=== PATIENT | female | born 1945 | race Caucasian/White ===

== ENCOUNTER 2021-08-26 14:05 | Inpatient (IN) | payer MEDICARE, OTHER ==
[~2021-08-26] VITALS: Ht 167.6 cm; Wt 99.4 kg
[2021-08-26] VITALS (360 sets, daily range): BP systolic 155–163; BP diastolic 61–66; PULSE 85–89; TEMP 97.6–98; O2SAT 76–100
[~2021-08-26 14:05] MED LIST: AMITRIPTYLINE H10 M1 PO; ASPIR-LOW81 MG PO; CALTRATE-600 W600 MG PO; COLACE 100100 MG/CAP PO; FLEXERIL10 MG PO; FLOMAX 0.40.4 MG/CAP PO; LANTUS SOLOS100 U/ML SQ; LANTUS100 U/ML SQ; LOVAZA1 GM PO; NEXIUM40 MG PO; NORCO 325 MG-51 TAB PO; NORCO 325 MG-7.1 TAB PO; NOVOLOG 100U100 U/ML SQ; PHENERGAN 25 TA25 MG PO; PRENATAL VITAMI1 TA5 PO; PRINIVIL20 MG PO; PYRIDIUM 100MG100 MG PO; ROXICODONE 55 MG/TAB PO; SYNTHROID0.075 MG/T PO; SYNTHROID0.1 MG/TAB PO; ULTRAM 50MG TAB50 MG PO; VITAMIN D PO; VYTORIN PO; ZYRTEC5 MG PO
[2021-08-26 14:26] LABS: HEMATOCRIT 42.3 % (37.0-47.0); HEMOGLOBIN 12.7 g/dl (12.5-16.0); MEAN CELL VOLUME 77 fl (80.0-100.0); MEAN CORPUSCULAR HEMOGLOBIN 23 pg (27-31); MEAN CORPUSCULAR HGB CONC 30 g/dl (33.0-37.0); MEAN PLATELET VOLUME 9.7 fl (7.4-10.4); PLATELET COUNT 708 K/mm3 (130-400); RED BLOOD COUNT 5.47 M/mm3 (4.10-5.30); REDCELL DISTRIBUTION WIDTH-CV 21.3 % (11.5-14.5)
[2021-08-26 14:46] LABS: ALBUMIN 2.4 gm/dL (3.4-4.8); ALKALINE PHOSPHATASE 140 U/L (40-150); ANION GAP 21 mmol/L (7-16); AST,SGOT 8 U/L (5-34); BILIRUBIN,TOTAL 0.3 mg/dL (0.2-1.2); BLOOD UREA NITROGEN 11 mg/dL (10-20); CHLORIDE 105 mmol/L (98-107); CREATININE, serum 1.19 mg/dL (0.57-1.11); GLUCOSE 365 mg/dL (70-99); POTASSIUM 4.2 mmol/L (3.5-4.5); SODIUM 134 mmol/L (136-145); TOTAL PROTEIN 7.5 gm/dL (6.2-8.1)
[2021-08-26 14:47] LABS: ALANINE AMINOTRANSFERASE < 6 U/L (0-55)
[2021-08-26 14:48] LABS: CARBON DIOXIDE 8 mmol/L (23-31)
[2021-08-26 14:58] LABS: COLLECTION METHOD CATHETER
[2021-08-26 15:08] LABS: MUCOUS Present (NOT PRESENT); PH 5 (5-8); SQUAMOUS EPITHELIAL 0-2 /hpf (0-10); URINE APPEARANCE Clear (CLEAR/HAZY); URINE BACTERIA None Seen /hpf (NONE SEEN); URINE BILIRUBIN Negative (NEGATIVE); URINE BLOOD 2+ (NEGATIVE); URINE COLOR Yellow (YELLOW); URINE GLUCOSE 3+ (NEGATIVE); URINE KETONE 2+ (NEGATIVE); URINE LEUKOCYTE ESTERASE Negative (NEGATIVE); URINE NITRATE Negative (NEGATIVE); URINE PROTEIN(semi-quant) 2+ (NEGATIVE); URINE UROBILINOGEN Negative (NEGATIVE)
[2021-08-26 15:10] LABS: HYPOCHROMIA 3+; LYMPHOCYTE 9 % (20.0-51.0); MICROCYTOSIS 1+; NEUTROPHILS 80 % (42.0-75.2)
[2021-08-26 15:11] LABS: ANISOCYTOSIS 2+; PLATELET ESTIMATE INCREASED (NORMAL)
[2021-08-26] MEDS ORDERED: ATIVAN 1MG T1 MG/TAB PO (18:09)
[2021-08-26] MEDS ORDERED: OSCAL 500 TAB500 MG PO (18:10)
[2021-08-26] MEDS ORDERED: LIPITOR 10MG10 MG PO (18:10)
[2021-08-26] MEDS ORDERED: PLAVIX 75MG TAB75 MG PO (18:11)
[2021-08-26] MEDS ORDERED: DOXYCYCLINE 10100 MG PO (18:11)
[2021-08-26] MEDS ORDERED: FOLIC ACID 11 MG/TA1 PO (18:12)
[2021-08-26] MEDS ORDERED: DIFLUCAN150 MG PO (18:12)
[2021-08-26] MEDS ORDERED: LAMICTAL 100MG100 MG PO (18:13)
[2021-08-26] MEDS ORDERED: LEXAPRO20 MG PO (18:14)
[2021-08-26] MEDS ORDERED: MYRBETR50MG PO (18:15)
[2021-08-26] MEDS ORDERED: COZAAR 50MG50 MG/TAB PO (18:15)
[2021-08-26] MEDS ORDERED: NITROSTAT0.4 MG/TAB SL (18:15)
[2021-08-26] MEDS ORDERED: NOVOLOG FLEX100 U/ML SQ (18:16)
[2021-08-26] MEDS ORDERED: PRILOSEC 20MG20 MG PO (18:16)
[2021-08-26] MEDS ORDERED: PROAIR HFA0.09 MG/AC IH (18:17)
[2021-08-26] MEDS ORDERED: MASON NATURAL2000 IU PO (18:18)
[2021-08-26] MEDS ORDERED: VITAMIN B12 781 TAB PO (18:18)
[2021-08-26] MEDS ORDERED: ZYRTEC5 MG PO (18:19)
[2021-08-26] MEDS ORDERED: WELLBUTRIN SR150 M1 PO (18:19)
[2021-08-26] MEDS ORDERED: ZINC16.7 MG PO (18:19)
[2021-08-26 18:37] LABS: CALCIUM 8.6 mg/dL (8.4-10.2); CREATININE, serum 1.19 mg/dL (0.57-1.11); POTASSIUM 5.1 mmol/L (3.5-4.5)
--- NOTE | 2021-08-26 19:15 | NUR ---
DURING BEDSIDE SHIFT REPORT, THIS RN AND OFF GOING RN ASSESSED PT'S WOUNDS TO SACRUM/COCCYX AREA. PICTURES TAKEN OF WOUND TO R BUTTOCKS AND TO L GROIN TO PLACE IN PT'S CHART, WITH PERMISSION FROM PT. ROSALIE HEREDIA SIZE OPENING ON RIGHT BUTTOCKS DRAINING CUMMINGS/BUDRICK PURULENT DRAINAGE CONTINUOUSLY. ABD PAD PLACED IN FOLD OF BUTTOCKS, WILL CHANGE NEEDED. REDNESS THROUGHOUT COCCYX, PERINEUM, AND GROIN. PER PT AND FAMILY, L GROIN SITE WAS OLD CYST THAT RUPTURED. APPEARS LIKE MOIST SCABBED AREA, NO DRAINAGE NOTED. INTERDRY PLACED UNDER PANNIS AND IN GROIN AFTER CLEANSING AREA. WILL CONTINUE TO MONITOR.
[2021-08-26 22:48] LABS: CALCIUM 8.3 mg/dL (8.4-10.2); CREATININE, serum 1.07 mg/dL (0.57-1.11); POTASSIUM 3.7 mmol/L (3.5-4.5)
[2021-08-27] VITALS (1148 sets, daily range): BP systolic 132–163; BP diastolic 55–74; PULSE 70–87; TEMP 97.8–98.5; O2SAT 90–100
[2021-08-27 01:24] LABS: CALCIUM 8.6 mg/dL (8.4-10.2); CREATININE, serum 0.99 mg/dL (0.57-1.11); POTASSIUM 3.8 mmol/L (3.5-4.5)
[2021-08-27 05:20] LABS: HEMATOCRIT 37.6 % (37.0-47.0); HEMOGLOBIN 11.4 g/dl (12.5-16.0); MEAN CELL VOLUME 76 fl (80.0-100.0); MEAN CORPUSCULAR HEMOGLOBIN 23 pg (27-31); MEAN CORPUSCULAR HGB CONC 30 g/dl (33.0-37.0); MEAN PLATELET VOLUME 9.7 fl (7.4-10.4); PLATELET COUNT 625 K/mm3 (130-400); RED BLOOD COUNT 4.92 M/mm3 (4.10-5.30); REDCELL DISTRIBUTION WIDTH-CV 21.3 % (11.5-14.5)
[2021-08-27 06:08] LABS: ALKALINE PHOSPHATASE 111 U/L (40-150); ANION GAP 12 mmol/L (7-16); AST,SGOT 6 U/L (5-34); BILIRUBIN,TOTAL 0.3 mg/dL (0.2-1.2); BLOOD UREA NITROGEN 9 mg/dL (10-20); CALCIUM 8.5 mg/dL (8.4-10.2); CHLORIDE 115 mmol/L (98-107); GLUCOSE 174 mg/dL (70-99); MAGNESIUM 2.1 mg/dL (1.6-2.6); POTASSIUM 3.9 mmol/L (3.5-4.5); SODIUM 139 mmol/L (136-145); TOTAL PROTEIN 6.5 gm/dL (6.2-8.1)
[2021-08-27 06:31] LABS: ALANINE AMINOTRANSFERASE < 6 U/L (0-55)
[2021-08-27 06:32] LABS: CARBON DIOXIDE 12 mmol/L (23-31)
[2021-08-27 06:42] LABS: BAND 13 % (0-10); EOSINOPHIL 2 % (0-4); LYMPHOCYTE 9 % (20.0-51.0); NEUTROPHILS 66 % (42.0-75.2); PLATELET ESTIMATE INCREASED (NORMAL)
--- NOTE | 2021-08-27 07:00 | NUR ---
BEDSIDE REPORT RECEIVED FROM BELA JOHNSON. PT APPEARS TO BE SLEEPING AT THIS TIME; NO S/S DISCOMFORT. 20G PIV TO BILAT AC. NS W/ 20K INFUSING AT 250 ML/HR. FC TO DEPENDENT DRAINAGE. DRESSING TO PERIRECTAL WOUND CDI.
[2021-08-27 07:24] LABS: CREATININE, serum 0.94 mg/dL (0.57-1.11)
--- NOTE | 2021-08-27 10:10 | NUR ---
Building Contractor met with patient and patient's sister, Candi (ph#[phone]) to discuss discharge planning. Patient currently lives alone in [place] but advised she plans to move in with her sister Candi soon. Patient sees Dr. Givens for primary care and obtains medications from [facility]. Candi reported that she picks up patient's medications for her. Patient uses a cane for ambulation and advsied she is normally independent with ADLS. Patient reports her daughter, Josiane (ph#[phone]) is her DPOA-HC. Patient stated her daughter Josiane is the youngest of three. Patient states she is interested in Home Health services. PT/OT ordered for patient and SW will follow for recommendations. SW contacted Armida at Dr. Givens's office and requested a copy of DPOA-HC be faxed. Discharge Plan: Pending PT/OT recs
--- NOTE | 2021-08-27 13:57 | NUR ---
PT'S WOUND CULTURE POSITIVE FOR GROUP B STREP AND ECOLI. SPOKE WITH PHARMACIST; PT ADEQUATELY COVERED WITH CEFEPIME AND VANCOMYCIN.
--- NOTE | 2021-08-27 20:00 | NUR ---
PT SITTING UP IN BED EATING DINNER TRAY. AAOX3, SLIGHTLY DROWSY AT TIMES BUT EATING WITHOUT DIFFICULITY. PT STATES NO QUESTIONS OR REQUESTS. HELPED TO REPOSITION FOR COMFORT AFTER EATING. WOULD TO BUTTOCKS CONTINUES TO HAVE PURULENT DRAINAGE, TENDER TO TOUCH. WILL REPOSITION PT THROUGH NIGHT FOR PRESSURE RELIEF AND COMFORT. VSS, WILL CONTINUE TO MONITOR.
[2021-08-28] VITALS (30 sets, daily range): BP systolic 134–152; BP diastolic 58–71; PULSE 63–86; TEMP 98.1–98.8; O2SAT 96–100
[2021-08-28 05:20] LABS: BASO % 0.3 % (0.0-2.0); EOS # 0.1 K/mm3 (0.0-0.7); EOS % 0.6 % (0.0-4.0); GRAN % 72.8 % (42.2-75.2); LYMPH # 1.3 K/mm3 (1.2-3.4); LYMPH % 13.7 % (20.0-51.0); MEAN CELL VOLUME 76 fl (80.0-100.0); MEAN CORPUSCULAR HGB CONC 31 g/dl (33.0-37.0); MEAN PLATELET VOLUME 9.6 fl (7.4-10.4); MONO # 1.1 K/mm3 (0.1-0.6); MONO % 11.7 % (1.7-9.3); RED BLOOD COUNT 3.97 M/mm3 (4.10-5.30)
[2021-08-28 05:23] LABS: HEMATOCRIT 30.1 % (37.0-47.0); MEAN CORPUSCULAR HEMOGLOBIN 23 pg (27-31)
[2021-08-28 05:26] LABS: HEMOGLOBIN 9.2 g/dl (12.5-16.0); PLATELET COUNT 440 K/mm3 (130-400)
[2021-08-28 05:53] LABS: ALBUMIN 1.5 gm/dL (3.4-4.8); ALKALINE PHOSPHATASE 94 U/L (40-150); ANION GAP 8 mmol/L (7-16); AST,SGOT 8 U/L (5-34); BLOOD UREA NITROGEN 9 mg/dL (10-20); CALCIUM 7.3 mg/dL (8.4-10.2); CARBON DIOXIDE 16 mmol/L (23-31); CHLORIDE 113 mmol/L (98-107); CREATININE, serum 0.63 mg/dL (0.57-1.11); GLUCOSE 159 mg/dL (70-99); MAGNESIUM 1.5 mg/dL (1.6-2.6); PHOSPHOROUS 0.8 mg/dL (2.3-4.7); SODIUM 137 mmol/L (136-145); TOTAL PROTEIN 4.9 gm/dL (6.2-8.1)
[2021-08-28 06:01] LABS: ALANINE AMINOTRANSFERASE < 6 U/L (0-55); POTASSIUM 2.7 mmol/L (3.5-4.5)
[2021-08-28 06:56] LABS: BILIRUBIN,TOTAL 0.3 mg/dL (0.2-1.2)
--- NOTE | 2021-08-28 08:14 | NUR ---
(Late Entry) Shortage Worker placed patient's DPOA-HC in her chart. DPOA-HC designates her sister and daughter.
--- NOTE | 2021-08-28 08:41 | NUR ---
PT TRANSFERED TO ROOM 316 VIA BED. REPORT CALLED TO BELA VYAS.
--- NOTE | 2021-08-28 09:24 | NUR ---
RECEIVED BEDSIDE REPORT FROM BELA JOHNSON. UPON ASSESSMENT PT IS RESTING IN BED, ALERT AND ORIENTED. AQUINO CATHETER IN PLACE. ANTIBIOTICS, FLUIDS, MAG INFUSING TO PICC LINE TO R UPPER ARM, DRESSING CDI. DRESSING TO COCCYX WOUND CHANGED, MODERATE AMOUNT OF PURULENT DRAINAGE NOTED TO OLD DRESSING.
--- NOTE | 2021-08-28 11:40 | NUR ---
Nurse Practitioner Per Diem met with patient to follow up on discharge plan and patient's daughter, Josiane is at bedside with patient's other daughter, Maricruz (ph#[phone]) is on [employer]. Maricruz is an RN that lives in [place]. GLORIA reviewed PT/OT recommendation for SNF and both patient and daughters are agreeable. Maricruz reported they have been concerned with patient's ability to care for herself at home and willingness to take her prescribed medications. Maricruz advised that patient has stopped taking some of her medications and instead using essential oils her sister has recommended. Patient would like referrals sent to [facility] with [facility] being her first preference. GLORIA faxed referrals. Discharge Plan: SNF, pending referrals
--- NOTE | 2021-08-28 19:15 | NUR ---
Patient transferd from ICU, settled in. No significant events. Some family concerns. Patient stated to this nurse that her sister Reba Gibbons is her PRIMARY DPOA, while her daughter Josiane Pool is only to be deferred to if Reba is incapacitated. It is not to be viewed as a joint DPOA. Additionally, she wishes that any information given to Josiane be given to her (the patient first). Patient feels as if she is not being taken for her word and beliefs currently and would like to have social work and staff speak directly to her and her sister, over her daughters. This nurse will address these concerns with social work tomorrow. Additionally, home meds were ordered, and nurse addressed concerns with pharmacy about patient having been off meds and taking "essential oils" per notes from social work from meeting with patient, and daughters. Patient expressed that she vocalized that she has been taking her meds and that her daughters are not around and not listening to her.
[2021-08-28 22:37] LABS: CALCIUM 8.1 mg/dL (8.4-10.2); CREATININE, serum 0.62 mg/dL (0.57-1.11); MAGNESIUM 1.8 mg/dL (1.6-2.6); PHOSPHOROUS 1.8 mg/dL (2.3-4.7); POTASSIUM 3.2 mmol/L (3.5-4.5)
[2021-08-29 04:21] VITALS: BP 152/64; PULSE 80; TEMP 98.2
--- NOTE | 2021-08-29 06:00 | NUR ---
ASSESSMENT COMPLETE FOR THIS SHIFT. PT HAD SOME PAIN TO HER BUTTOCK. PT GIVEN TRAMADOL A COUPLE OF TIMES THIS SHIFT. PT FELT THE TRAMADOL WAS EFFECTIVE. CALL LIGHT WITHIN REACH.
[2021-08-29 07:05] LABS: BASO % 0.4 % (0.0-2.0); EOS # 0.1 K/mm3 (0.0-0.7); EOS % 0.9 % (0.0-4.0); GRAN # 7.1 K/mm3 (1.4-6.5); GRAN % 66.3 % (42.2-75.2); HEMOGLOBIN 10.8 g/dl (12.5-16.0); LYMPH # 2.1 K/mm3 (1.2-3.4); LYMPH % 19.4 % (20.0-51.0); MEAN CELL VOLUME 74 fl (80.0-100.0); MEAN CORPUSCULAR HEMOGLOBIN 23 pg (27-31); MEAN CORPUSCULAR HGB CONC 32 g/dl (33.0-37.0); MEAN PLATELET VOLUME 10.3 fl (7.4-10.4); MONO # 1.3 K/mm3 (0.1-0.6); MONO % 11.6 % (1.7-9.3); PLATELET COUNT 468 K/mm3 (130-400); RED BLOOD COUNT 4.62 M/mm3 (4.10-5.30); REDCELL DISTRIBUTION WIDTH-CV 21.6 % (11.5-14.5)
[2021-08-29 07:11] LABS: HEMATOCRIT 34.1 % (37.0-47.0)
[2021-08-29 07:22] VITALS: BP 136/75; PULSE 107; TEMP 98.7
[2021-08-29 07:34] LABS: ALBUMIN 1.7 gm/dL (3.4-4.8); ALKALINE PHOSPHATASE 126 U/L (40-150); ANION GAP 10 mmol/L (7-16); AST,SGOT 9 U/L (5-34); BILIRUBIN,TOTAL 0.3 mg/dL (0.2-1.2); BLOOD UREA NITROGEN 8 mg/dL (10-20); CALCIUM 7.9 mg/dL (8.4-10.2); CARBON DIOXIDE 22 mmol/L (23-31); CHLORIDE 107 mmol/L (98-107); CREATININE, serum 0.55 mg/dL (0.57-1.11); GLUCOSE 76 mg/dL (70-99); MAGNESIUM 1.8 mg/dL (1.6-2.6); PHOSPHOROUS 2.3 mg/dL (2.3-4.7); SODIUM 139 mmol/L (136-145); TOTAL PROTEIN 5.4 gm/dL (6.2-8.1)
[2021-08-29 07:43] LABS: ALANINE AMINOTRANSFERASE < 6 U/L (0-55)
[2021-08-29 07:45] LABS: POTASSIUM 2.9 mmol/L (3.5-4.5)
--- NOTE | 2021-08-29 11:10 | NUR ---
Initial visit; Patient doing much better after a few days of confusion and not doing well. Honey Processor happily visited with Polly and her friend and will keep her in Honey [employer]or's prayers for continued healing and all of God's blessings.
--- NOTE | 2021-08-29 11:36 | NUR ---
PATIENT PAIN AT MANAGEABLE LEVEL, REPORTS 3-4(10). PATIENT POTASSIUM BEING REPLACED THIS MORNING. NO COMPLAINTS OF SOB. SOME FINE CRACKLES IN RLL NOTED AND EDEMA IN LOWER EXTREMITIES. pATIENT ON TELE NOW, HR IN THE 120'S. KATLYN WILKINSON.
[2021-08-29 11:45] VITALS: BP 150/63; PULSE 89; TEMP 98.6
[2021-08-29 15:35] VITALS: BP 151/63; PULSE 86; TEMP 98.4
--- NOTE | 2021-08-29 17:25 | NUR ---
PATIENT WORKED WITH PT TODAY SUCCESSFULLY. COMPLIED WITH ALL MEDICATION REGIMENS. PATIENT HAD VERY LARGE BOWL MOVEMENT TODAY. EXPRESSED FEELING MUCH BETTER AFTER BOWEL MOVEMENT. PAIN LEVEL MUCH MORE CONTROLLED. PATIENT POTASSIUM REPLACED WITH 80MEQ IV OVER 4 RUNS. IV FLUIDS STOPPED TODAY, PATIENT HAD FINE CRACKLES IN RLL, AND SLIGHT PITTING EDEMA IN BAIRON LE AND UE. RECHEK OF POTASSIUM ORDERED FOR 1800. WOUND WITH ABD FOR DRAINAGE. AQUINO DRAINING CLEAR YELLOW URINE. NO CURRENT PLAN FOR DISCHARGE.
[2021-08-29 21:42] VITALS: BP 130/64; PULSE 92; TEMP 98.3
[2021-08-30 00:04] VITALS: BP 116/66; PULSE 80; TEMP 97.7
[2021-08-30 04:02] VITALS: BP 151/95; PULSE 80; TEMP 98
--- NOTE | 2021-08-30 06:00 | NUR ---
ASSESSMENT COMPLETE FOR THIS SHIFT. PT HAD A COUPLE OF BOUT OF INCONTINENT LOOSE STOOLS THIS SHIFT. SAMPLE TAKEN. WILL PASS ON TO DAYSHIFT RN TO CHECK WITH HOSPITALIST TO SEE IF HE/SHE WANTS SAMPLE SENT TO LAB. CALL RENETTA BUENO.
[2021-08-30 08:00] VITALS: BP 144/61; PULSE 96; TEMP 98.2
[2021-08-30 08:04] LABS: HEMOGLOBIN 10.7 g/dl (12.5-16.0); MEAN CELL VOLUME 74 fl (80.0-100.0); MEAN CORPUSCULAR HEMOGLOBIN 23 pg (27-31); MEAN CORPUSCULAR HGB CONC 31 g/dl (33.0-37.0); MEAN PLATELET VOLUME 10.2 fl (7.4-10.4); PLATELET COUNT 477 K/mm3 (130-400); RED BLOOD COUNT 4.68 M/mm3 (4.10-5.30); REDCELL DISTRIBUTION WIDTH-CV 21.8 % (11.5-14.5)
[2021-08-30 08:06] LABS: HEMATOCRIT 34.6 % (37.0-47.0)
[2021-08-30 08:27] LABS: ALBUMIN 1.8 gm/dL (3.4-4.8); CALCIUM 8.1 mg/dL (8.4-10.2); CREATININE, serum 0.6 mg/dL (0.57-1.11); MAGNESIUM 1.8 mg/dL (1.6-2.6); PHOSPHOROUS 2.9 mg/dL (2.3-4.7); POTASSIUM 3.2 mmol/L (3.5-4.5)
--- NOTE | 2021-08-30 08:52 | NUR ---
PATIENT SITTING UPRIGHT IN BED, EATTING BREAKFAST, IN GOOD MOOD. NO COMPLAINTS OF PAIN. NO CONCERNS. FINE CRACKLES IN RLL. EDEMA IN BAIRON HANDS REDUCED. YELLOW CLEAR URINE IN AQUINO.
[2021-08-30 09:42] LABS: BAND 2 % (0-10); BASOPHIL 1 % (0-2); HYPOCHROMIA 3+; LYMPHOCYTE 20 % (20.0-51.0); MICROCYTOSIS 1+; NEUTROPHILS 58 % (42.0-75.2); PLATELET ESTIMATE INCREASED (NORMAL)
[2021-08-30 09:43] LABS: ANISOCYTOSIS 2+
[2021-08-30 11:53] VITALS: BP 128/61; PULSE 83; TEMP 98.2
--- NOTE | 2021-08-30 15:06 | NUR ---
PATIENT BED CHANGE AFTER LARGE LOOSE BOWEL MOVEMENT. PATIENT REPORTED URINE LEAKING AROUND FOELY. BED AND CHUX PAD SOAKED WITH URINE. AQUINO REMOVED. SULTANA CARE AND MOISTURE BARRIER CREAM APPLIED. PATIENT INSTRUCTED TO CALL TO USE BSC.
[2021-08-30 16:16] VITALS: BP 107/57; PULSE 91; TEMP 98.5
--- NOTE | 2021-08-30 19:31 | NUR ---
AQUINO REMOVED, PATIENT INSTRUCTED TO CALL FOR BSC TO VOID. DRAIN SPONGE FOLDED BEING USED TO CATCH DRAINAGE FROM ABCESS. NO COMPLAINTS OF PAIN TODAY, NO USE OF PAIN MEDS.
[2021-08-30 20:00] VITALS: BP 141/71; PULSE 88; TEMP 98.7
[2021-08-31] VITALS: BP 139/71; PULSE 61; TEMP 98.2
[2021-08-31 04:00] VITALS: BP 131/70; PULSE 72; TEMP 98.1
--- NOTE | 2021-08-31 06:00 | NUR ---
ASSESSMENT COMPLETE FOR THIS SHIFT. PT RESTING IN BED. PT HAD SEVERAL BOUTS OF INCONTINENT LOOSE STOOL AND URINE. PT DOESN'T CALL OUT TO USE THE BEDSIDE COMMODE. HOSPITALIST CALLED ABOUT THE LOOSE STOOLS. IMODIUM ORDERED AND GIVEN. IMODIUM HAS HELPED. PT DENIED GENERAL PAIN, CHEST PAIN, PALPITATIONS, SOB, N,V,D OR DIZZINESS. PT EXPRESSED NO OTHER NEEDS AT THIS TIME. CALL LIGHT WITHIN REACH.
[2021-08-31 06:46] LABS: HEMOGLOBIN 11.2 g/dl (12.5-16.0); MEAN CELL VOLUME 74 fl (80.0-100.0); MEAN CORPUSCULAR HEMOGLOBIN 23 pg (27-31); MEAN CORPUSCULAR HGB CONC 31 g/dl (33.0-37.0); MEAN PLATELET VOLUME 9.9 fl (7.4-10.4); PLATELET COUNT 456 K/mm3 (130-400); RED BLOOD COUNT 4.83 M/mm3 (4.10-5.30); REDCELL DISTRIBUTION WIDTH-CV 21.9 % (11.5-14.5)
[2021-08-31 06:48] LABS: HEMATOCRIT 35.7 % (37.0-47.0)
[2021-08-31 07:13] LABS: ALBUMIN 1.9 gm/dL (3.4-4.8); CALCIUM 8.4 mg/dL (8.4-10.2); CREATININE, serum 0.63 mg/dL (0.57-1.11); MAGNESIUM 1.8 mg/dL (1.6-2.6); PHOSPHOROUS 3.9 mg/dL (2.3-4.7)
[2021-08-31 07:39] VITALS: BP 126/65; PULSE 75; TEMP 98
[2021-08-31 08:03] LABS: ANISOCYTOSIS 2+; BAND 11 % (0-10); EOSINOPHIL 4 % (0-4); LYMPHOCYTE 30 % (20.0-51.0); METAMYELOCYTE 2 % (0-0); NEUTROPHILS 47 % (42.0-75.2)
[2021-08-31 08:04] LABS: OVALOCYTES 1+; PLATELET ESTIMATE NORMAL (NORMAL)
--- NOTE | 2021-08-31 08:30 | NUR ---
PT LAYING SUPINE IN BED ON ROOM AIR BEING CLEANED UP BY AIDS. PT DOES HAVE A LOT OF DRAINAGE COMING FROM PERIRECTAL ABSCESS. AREAS WERE SQUEEZED AND GOT MUCH DRAINAGE OUT POSSIBLE. PT STATES NO PAIN AT ALL. PT STATES NO CONCERNS/NEEDS AT THIS TIME. CALL LIGHT IS WITHIN REACH.
[2021-08-31 11:00] VITALS: BP 118/63; PULSE 79; TEMP 97.9
--- NOTE | 2021-08-31 12:53 | NUR ---
SW emailed updates to Krystle at [facility]. SW contacted and faxed updates to [facility] and [facility]. Gisele, at [facility], reports that they can continue to follow the patient; but they will need more information on the patient's diarrhea and status of her wound, as things progress. [facility] has not accepted yet. Awaiting other facilities Luana, at [facility], reports that they will get back to this SW on the referral. *Discharge plan: SNF. Referrals out.
--- NOTE | 2021-08-31 13:18 | NUR ---
Krystle, at [facility], reports that they did not receive the initial referral. SW emailed the rest of the patient's information to Krystle.
--- NOTE | 2021-08-31 13:48 | NUR ---
oMrena, at [facility], reports that they can accept the patient.
[2021-08-31 16:18] VITALS: BP 123/64; PULSE 77; TEMP 98
--- NOTE | 2021-08-31 18:39 | NUR ---
PT LAYING SUPINE IN BED JUST FINISHING DINNER. PT STATES THAT SHE IS "DOING GOOD." PT STATES NO PAIN OR NEEDS AT THIS TIME. CALL LIGHT IS WITHIN REACH.
[2021-08-31 20:17] VITALS: BP 140/82; PULSE 88; TEMP 99
[2021-09-01] VITALS (7 sets, daily range): BP systolic 119–153; BP diastolic 56–72; PULSE 75–87; TEMP 97.6–98.7
--- NOTE | 2021-09-01 00:08 | NUR ---
During report pt was eating her evening meal. Assessment and medication administration completed without difficulty. Pt is A&Ox4. Pt has denied pain thus far this shift. All other needs met at this time, call light within reach.
--- NOTE | 2021-09-01 00:16 | NUR ---
Pts abscess was drained at approximately 2340. Pt expresses discomfort when abscess is pushed on but not at other times. Drainage is light red in color.
--- NOTE | 2021-09-01 05:30 | NUR ---
Pt had an uneventful shift. Perirectal abscess was drained at approximately 0445. Drainage continues to be reddish in color. Pt express relief of drainage. All other needs met at this time, call light within reach.
[2021-09-01 06:07] LABS: HEMOGLOBIN 10.8 g/dl (12.5-16.0); MEAN CELL VOLUME 76 fl (80.0-100.0); MEAN CORPUSCULAR HEMOGLOBIN 23 pg (27-31); MEAN CORPUSCULAR HGB CONC 30 g/dl (33.0-37.0); MEAN PLATELET VOLUME 9.8 fl (7.4-10.4); PLATELET COUNT 456 K/mm3 (130-400); REDCELL DISTRIBUTION WIDTH-CV 22.2 % (11.5-14.5)
[2021-09-01 06:20] LABS: CALCIUM 8.2 mg/dL (8.4-10.2); CREATININE, serum 0.67 mg/dL (0.57-1.11); HEMATOCRIT 35.8 % (37.0-47.0); PHOSPHOROUS 4.3 mg/dL (2.3-4.7); POTASSIUM 3.9 mmol/L (3.5-4.5)
[2021-09-01 07:57] LABS: BAND 14 % (0-10); EOSINOPHIL 4 % (0-4); LYMPHOCYTE 23 % (20.0-51.0); NEUTROPHILS 51 % (42.0-75.2)
[2021-09-01 07:58] LABS: ANISOCYTOSIS 2+; PLATELET ESTIMATE NORMAL (NORMAL)
--- NOTE | 2021-09-01 08:10 | NUR ---
PT LAYING SUPINE IN BED ON ROOM AIR. PT STATES NO PAIN AT THIS TIME. "THEY DRAINED THOSE ABSCESS A FEW TIMES ALREADY TODAY AND GOT OUT A BUNCH OF STUFF." PT STATES THAT SHE NEEDS TO USE THE RESTROOM. PT WAS ASSISTED VIA WALKER AND STAND BY ASSIST TO RESTROOM TO VOID. PT HAD STEADY GAIT. ASSISTED PT BACK TO BED. PT STATES NO OTHER NEEDS/CONCERNS AT THIS TIME. CALL LIGHT IS WITHIN REACH.
--- NOTE | 2021-09-01 10:29 | NUR ---
Krystle, at [facility], reports that they have to get a room ready for the patient; but should be able to accept the patient and have the room ready by tomorrow. Krystle requests the patient's COVID vaccine status and a copy of the patient's DPOA-HC and insurance cards. GLORIA met with the patient to update on referrals. The patient would like to pursue with [facility]. She states that she is vaccinated for COVID and received Moderna. SW contacted and updated the patient's daughter, Jaclyn. Jaclyn is supportive of the discharge plan. SW to email the patient's DPOA-HC, insurance cards, and updates to Krystle at [facility]. SW to fax updates to [facility] and [facility]. *Discharge plan: [facility]*
--- NOTE | 2021-09-01 13:07 | NUR ---
Follow-up visit; Polly doing well and attributes much of her getting better to prayer. She and Director Foundation agreed that we will continue praying for full recovery. She had company so Director Foundation left them to visit and wished them God's blessings.
--- NOTE | 2021-09-01 13:49 | NUR ---
The PA notified GLORIA that the team will be ready to discharge the patient tomorrow. The patient is inquiring about a donut seat cushion. GLORIA met with the patient and her sister, Candi, to review discharge plan for tomorrow. The patient is in agreement going to [facility]. GLORIA presented and read the IM form outloud to the patient. The patient verbalized understanding and signed the form. GLORIA provided her with a copy. GLORIA informed the patient and her sister on where they could obtain a donut seat cushion. GLORIA attempted to update Krystle at [facility]. GLORIA left her a voicemail. GLORIA updated [facility] and [facility].
--- NOTE | 2021-09-01 15:24 | NUR ---
Krystle, at [facility] ([place], [place]), reports that they can chart picker the patient around 1330 tomorrow.
--- NOTE | 2021-09-01 19:13 | NUR ---
PT SITTING UP IN BED EATING DINNER. PT ON ROOM AIR. PT STATE NO PAIN/CONCERNS/NEEDS AT THIS TIME. FAMILY AT BEDSIDE. CALL LIGHT IN PLACE.
--- NOTE | 2021-09-01 21:31 | NUR ---
Patient assessed around 193. Alert and oriented. Denies having pain and discomfort. PICC to RUE. Denies SOB and dyspnea. LS CTA. HRR. Telemetry in place. BSAx4. Patient had diarrhea at beginning of shift. Given PRN Imodium as requested. Patient voices no questions, needs, or concerns at this time. In bed with call light within reach.
[2021-09-02 04:49] VITALS: BP 125/59; PULSE 72; TEMP 98.8
[2021-09-02 05:22] LABS: HEMOGLOBIN 11.1 g/dl (12.5-16.0); MEAN CELL VOLUME 77 fl (80.0-100.0); MEAN CORPUSCULAR HEMOGLOBIN 23 pg (27-31); MEAN CORPUSCULAR HGB CONC 30 g/dl (33.0-37.0); MEAN PLATELET VOLUME 9.5 fl (7.4-10.4); PLATELET COUNT 414 K/mm3 (130-400); RED BLOOD COUNT 4.78 M/mm3 (4.10-5.30); REDCELL DISTRIBUTION WIDTH-CV 21.9 % (11.5-14.5)
[2021-09-02 05:25] LABS: HEMATOCRIT 36.9 % (37.0-47.0)
--- NOTE | 2021-09-02 05:28 | NUR ---
Patient has been resting in bed with call light within reach. Has denied pain and discomfort. Was incontinent once this shift, and has ambulated to the bathroom. Drainage continues from abscess site. ABD pad to area. Reports area is feeling much better, and is without pain, only itchy. Denies having any questions, needs, or concerns at this time. In bed with call light within reach.
[2021-09-02 05:40] LABS: CALCIUM 8.5 mg/dL (8.4-10.2); CREATININE, serum 0.72 mg/dL (0.57-1.11); MAGNESIUM 2.1 mg/dL (1.6-2.6); POTASSIUM 4.3 mmol/L (3.5-4.5)
[2021-09-02 05:48] LABS: ANISOCYTOSIS 2+; BAND 1 % (0-10); EOSINOPHIL 5 % (0-4); HYPOCHROMIA 3+; LYMPHOCYTE 33 % (20.0-51.0); MICROCYTOSIS 1+; NEUTROPHILS 50 % (42.0-75.2); PLATELET ESTIMATE INCREASED (NORMAL)
[2021-09-02 05:49] LABS: OVALOCYTES 1+
[2021-09-02 07:11] VITALS: BP 144/68; PULSE 77; TEMP 98.1
[2021-09-02] MEDS ORDERED: TYLENOL 500MG500 MG PO (10:21)
[2021-09-02] MEDS ORDERED: ANTI-DIARRHEAL2 MG PO (10:23)
[2021-09-02] MEDS ORDERED: DESENEX TP (10:24)
[2021-09-02] MEDS ORDERED: ULTRAM 50MG TAB50 MG PO (10:26)
--- NOTE | 2021-09-02 10:26 | NUR ---
The patient is to discharge today, 09/02, to [facility] for a skilled stay. Transportation was scheduled at 1330, via [facility]. SW informed the patient, her sister, and RN of the time. No additional needs at this time.
[2021-09-02] MEDS ORDERED: NOVLOG SQ ×2 (10:28→10:29)
[2021-09-02] MEDS ORDERED: FLAGYL500 MG PO (10:30)
[2021-09-02] MEDS ORDERED: CEFTIN500 MG PO (10:30)
[2021-09-02 11:25] VITALS: BP 120/63; PULSE 73; TEMP 98.3
--- NOTE | 2021-09-02 14:12 | NUR ---
Report called to [facility] staff member. PICC line removed per order. Discharge paperwork reviewed and given to patient. All vitals stable and patient AOx4. Escorted to front door by staff and family member for discharge.
== END 2021-09-02 14:00 | DRG 871 ==
LOC: COL.ER 14:05 → ICU 15:22 → MEDICAL 08-28 08:58
PROVIDERS: Family Medicine; Internal Medicine; Physician Assistant; Student in an Organized Health Care Education/Training Program; ADMIT Internal Medicine
PROC: 02HV33Z Insertion of Infusion Device into Superior Vena Cava, Percutaneous Approach (ICD-10-PCS; principal; 2021-08-27)
DX: A41.9 Sepsis, unspecified organism (principal); E11.10 Type 2 diabetes mellitus with ketoacidosis without coma; L03.317 Cellulitis of buttock; K61.1 Rectal abscess; R15.9 Full incontinence of feces; E03.9 Hypothyroidism, unspecified; I10 Essential (primary) hypertension; I25.10 Atherosclerotic heart disease of native coronary artery without angina pectoris; G89.29 Other chronic pain; R53.81 Other malaise; Z20.822 Contact with and (suspected) exposure to COVID-19; B95.1 Streptococcus, group B, as the cause of diseases classified elsewhere; K44.9 Diaphragmatic hernia without obstruction or gangrene; B96.20 Unspecified Escherichia coli [E. coli] as the cause of diseases classified elsewhere; Z90.89 Acquired absence of other organs; Z98.51 Tubal ligation status; Z79.4 Long term (current) use of insulin; Z79.890 Hormone replacement therapy; Z88.0 Allergy status to penicillin; Z88.2 Allergy status to sulfonamides; Z88.8 Allergy status to other drugs, medicaments and biological substances; Z90.49 Acquired absence of other specified parts of digestive tract; Z90.5 Acquired absence of kidney
CPT/HCPCS: 99232-AI; 99233-AI; A4314; C1751; J0692; J0696; J1650; J1815; J3370; J3475; J3480; J7030; J7040; J7050; Q9967